=== PATIENT | female | born 2005 | race Caucasian/White ===

== ENCOUNTER 2024-06-12 10:49 | Inpatient (IN) | payer OTHER ==
[~2024-06-12] VITALS: Ht 161.3 cm; Wt 101.6 kg
[~2024-06-12 10:49] MED LIST: SEVOFLURANE 250 ML BTL INH ONE
[2024-06-12] MEDS ORDERED: MAGNESIUM HYDROXIDE/AL HYDROX 30 ML CUP PO PRN (11:30)
[2024-06-12] MEDS ORDERED: PENICILLIN G POTASSIUM 5 MUNITS/110 ML PIGGYBACK IV ONE (11:30)
[2024-06-12] MEDS ORDERED: CALCIUM CARBONATE 500 MG CHEW PO PRN (11:30)
[2024-06-12] MEDS ORDERED: miSOPROStoL 25 MCG TAB PV SCH (11:30)
[2024-06-12 11:54] LABS: HEMOGLOBIN 10.7 g/dL (12.0-18.0); MCH 25.3 (27-36); MCHC 32.6 g/dl (30-36); MCV 77.6 fl (81-99); RBC 4.25 M/ul (4.3-5.7)
[2024-06-12 12:18] LABS: ALBUMIN 2.4 g/dL (3.4-5.0); ALBUMIN/GLOBULIN RATIO 0.57 (1.1-2.4); ANION GAP 13.9 (7-21); BILIRUBIN, TOTAL 0.4 ng/dL (0.2-1.0); BUN/CREATININE RATIO 15.55 (6.0-28.6); CREATININE, SERUM 0.45 mg/dL (0.55-1.02); POTASSIUM 3.9 mmol/L (3.5-5.1); PROTEIN, TOTAL 6.6 g/dL (6.4-8.2)
[2024-06-12 13:22] LABS: ABO A; RH NEGATIVE
[2024-06-12 13:23] LABS: ANTIBODY IDENTIFICATION ANTI-D; ANTIBODY SCREEN POSITIVE
[2024-06-12 13:57] LABS: CREATININE, RANDOM URINE 104.46 mg/dL (NOT ESTABLISHED); PROTEIN/CREATININE RATIO 0.11 mg/mg (0.010-0.107)
[2024-06-12 14:08] LABS: AMPHETAMINES, URINE NEGATIVE (NEGATIVE); BARBITURATES, URINE NEGATIVE (NEGATIVE); BENZODIAZEPINE, URINE NEGATIVE (NEGATIVE); BUPRENORPHINE, URINE NEGATIVE (NEGATIVE); CANNABINOID, URINE NEGATIVE (NEGATIVE); COCAINE, URINE NEGATIVE (NEGATIVE); ECSTASY, URINE NEGATIVE (NEGATIVE); FENTANYL, URINE NEGATIVE (NEGATIVE); METHADONE, URINE NEGATIVE (NEGATIVE); OPIATES, URINE NEGATIVE (NEGATIVE); OXYCODONE, URINE NEGATIVE (NEGATIVE); PHENCYCLIDINE, URINE NEGATIVE (NEGATIVE)
[2024-06-12 14:38] VITALS: BP 128/75
[2024-06-12] MEDS ORDERED: ACETAMINOPHEN 500 MG TAB PO PRN (15:45)
[2024-06-12] MEDS ORDERED: ondansetron HCL 4 MG/2 ML VIAL IV PRN (15:45)
[2024-06-13] MEDS ORDERED: PENICILLIN G POTASSIUM 5 MUNITS/110 ML PIGGYBACK IV ONE ×2 (00:01→08:15)
[2024-06-13] MEDS ORDERED: PENICILLIN G POTASSIUM 2.5 MUNITS in DEXTROSE 5% 100 ML IV SCH ×2 (04:00→12:00)
[2024-06-13] MEDS ORDERED: ROPIVACAINE 0.2% 200 ML BAG ONE (08:09)
[2024-06-13] MEDS ORDERED: LACTATED RINGER'S 1,000 ML IV SCH (08:15)
[2024-06-13] MEDS ORDERED: LACTATED RINGER'S 2,000 ML IV ONE (08:30)
[2024-06-13] MEDS ORDERED: ePHEDrine sulfate 5 MG/ML SYRINGE IV PRN (08:30)
[2024-06-13] MEDS ORDERED: ROPIVACAINE 0.2% 200 ML BAG EPIDURAL SCH (08:30)
[2024-06-13] MEDS ORDERED: LACTATED RINGER'S 500 ML IV PRN (08:30)
--- NOTE | 2024-06-13 09:12 | PR ---
[facility] [address] [place], [place] [address] Signed Progress Notes IP Datetime Report Generated by CPN: 06/13/2024 09:12 PROGRESS NOTES: [id number] Impression: Normal Progression of Labor; Reassuring Heart Rate Plan: Continue Present Management Informed Consent Obtain: Vaginal Delivery VITAL SIGNS: [id number] Vital Signs: Reviewed; Within Normal Limits EXAM: [id number] Effacement: 70 Station: -3 Contractions: q 2-3 min MEMBRANES: [id number] Comments: Pt seen and evaluated. Cx exam per RN. PEREZ at 06:30 this morning after receiving 2nd dose of cytotec. Clear fluid. Cat 1 tracing. Pt requested epidural which was kindly placed by anesthesia. BPs normal. No concerns. Continue expectant management and anticipate FETUS A: [id number] FHR Baseline: 130 Variability: Moderate 6-25bpm Accelerations: 15X15 Decelerations: None FHR Category: Category I Presentation: Vertex Comments on Fetus A: No evidence of metabolic acidosis FETUS B: [id number] Signing Physician: Daryl Myles DO Copies: ~ *Electronically Signed* 06/13/24911 DARYL MYELS (YASIR) DO PATIENT NAME: FER MCKAY PROGRESS NOTE DATE OF : 04 PHYSICIAN: DARYL MYLES) DO RPT #: [id number] REPORT IS CONFIDENTIAL AND NOT TO BE RELEASED WITHOUT AUTHORIZATION
[2024-06-13] MEDS ORDERED: OXYTOCIN/0.9 % SODIUM CHLORIDE 500 ML IV SCH ×3 (12:00→23:30)
--- NOTE | 2024-06-13 15:25 | PR ---
[facility] [address] [facility] [place], [place] [address] Signed Progress Notes IP Datetime Report Generated by CPN: 06/13/2024 15:25 PROGRESS NOTES: [id number] Impression: Normal Progression of Labor; Reassuring Heart Rate Procedures: Sterile Vag Exam Plan: Continue Present Management; Augmentation Informed Consent Obtain: Vaginal Delivery VITAL SIGNS: [id number] Vital Signs: Reviewed; Within Normal Limits EXAM: [id number] Dilatation: 4.5 Effacement: 90 Station: -2 Contractions: q 2-4 min MEMBRANES: [id number] Comments: Pt seen and examined. Doing well. Comfortable w/ epidural. On low dose pitocin. OT positon. Continue augmentation. Anticipate . FETUS A: [id number] FHR Baseline: 130 Variability: Moderate 6-25bpm Accelerations: 15X15 Decelerations: None FHR Category: Category I Presentation: Vertex Comments on Fetus A: No evidence of metabolic acidosis FETUS B: [id number] Signing Physician: Daryl Myles DO Copies: ~ *Electronically Signed* 06/13/24 1525 DARYL MYLES (YASIR) DO PATIENT NAME: FER MCKAY PROGRESS NOTE DATE OF : 04 PHYSICIAN: DARYL MYLES (YASIR) DO RPT #: [id number] REPORT IS CONFIDENTIAL AND NOT TO BE RELEASED WITHOUT AUTHORIZATION
--- NOTE | 2024-06-13 20:43 | PR ---
[facility] [address] [place], [place] [address] Signed Progress Notes IP Datetime Report Generated by CPN: 06/13/2024 20:43 PROGRESS NOTES: [id number] Impression: Normal Progression of Labor; Reassuring Heart Rate Procedures: Sterile Vag Exam Plan: Continue Present Management; Anticipate Vaginal Delivery Informed Consent Obtain: Vaginal Delivery VITAL SIGNS: [id number] Vital Signs: Reviewed; Within Normal Limits EXAM: [id number] Dilatation: 10.0 Effacement: 100 Station: 0 Contractions: q 3-4 min MEMBRANES: [id number] Comments: Pt seen and examined. Doing well. Some breakthrough pain w/ epidural on LEFT side. Pt now complete and will start pushing. FHT reassuring and will monitor closely. Reviewed anticipated course of 2nd stage of labor. All questions answered. FETUS A: [id number] FHR Baseline: 130 Variability: Moderate 6-25bpm Accelerations: 15X15 Decelerations: Late FHR Category: Category II Presentation: Vertex Comments on Fetus A: No evidence of metabolic acidosis FETUS B: [id number] Signing Physician: Daryl Myles DO Copies: ~ *Electronically Signed* 06/13/242042 DARYL MYLES (YASIR) DO PATIENT NAME: FER MCKAY PROGRESS NOTE DATE OF : 04 PHYSICIAN: DARYL MYLES (JD) DO RPT #: [id number] REPORT IS CONFIDENTIAL AND NOT TO BE RELEASED WITHOUT AUTHORIZATION
[2024-06-13] MEDS ORDERED: AMPICILLIN SOD 1 GM VIAL ONE (21:49)
[2024-06-13] MEDS ORDERED: ROCURONIUM BROMIDE 50 MG/5 ML SYR ONE (21:53)
[2024-06-13] MEDS ORDERED: SUCCINYLCHOLINE IN 0.9% NACL 200 MG/10 ML SYRINGE ONE (21:53)
[2024-06-13] MEDS ORDERED: fentaNYL citrate 100 MCG/2 ML VIAL ONE ×3 (21:53→23:26)
--- NOTE | 2024-06-13 21:54 | PR ---
[facility] [address] [place], [place] [address] Signed Progress Notes IP Datetime Report Generated by BLAYNE: 06/13/2024 21:54 PROGRESS NOTES: [id number] Impression: Arrest of Dilatation/Descent; Non-reassuring Heart Rate; Intrauterine Inflammation Procedures: Sterile Vag Exam Plan: Deliver- Section Informed Consent Obtain: Section Delivery; Risks, Benefits and Alternatives Discussed VITAL SIGNS: [id number] Vital Signs: Reviewed; Within Normal Limits EXAM: [id number] Dilatation: 10.0 Effacement: 100 Station: 0 Contractions: q 2-3 min MEMBRANES: [id number] Comments: Pt pushing w/ contractions w/ RN. Notified of maternal fever and tachycardia. Reviewed strip and noted tachycardia w/ minimal variability and recurrent late decelerations. Presented to bedside and pt remote from delivery. Not candidate for operative vaginal delivery due to high station. Recommended proceeding with stat section. Reviewed risks/benefits/alternatives. Pt and family members understand and agree. Stop pit, terbutaline, and Amp/Gent/Clinda ordered. OR crew notified and en route. Consents and orders completed. To OR to prepare for delivery FETUS A: [id number] FHR Baseline: 130 Variability: Minimal - >Undetectable to <=5bpm Accelerations: 15X15 Decelerations: Late FHR Category: Category II Presentation: Vertex Comments on Fetus A: No evidence of metabolic acidosis FETUS B: [id number] Signing Physician: Daryl Myles DO *Electronically Signed* 06/13/24 0807 DARYL MYLES) DO PATIENT NAME: FER MCKAY Candice PROGRESS NOTE DATE OF : 04 PHYSICIAN: DARYL MYLES) DO RPT #: [id number] REPORT IS CONFIDENTIAL AND NOT TO BE RELEASED WITHOUT AUTHORIZATION
[2024-06-13] MEDS ORDERED: SOD+POT BICARB/CITRIC ACID 2 EA TABLET.EFF PO ONE (22:00)
[2024-06-13] MEDS ORDERED: AMPICILLIN SOD 2 GM in SODIUM CHLORIDE 0.9% 100 ML IV SCH (22:00)
[2024-06-13] MEDS ORDERED: CLINDAMYCIN PHOSPHATE/D5W 900 MG/50 ML PIGGYBACK IV SCH (22:00)
[2024-06-13] MEDS ORDERED: DEXTROSE 5% IV ONE ×2 (22:00→22:15)
[2024-06-13] MEDS ORDERED: GENTAMICIN SULFATE IV ONE ×2 (22:00→22:15)
[2024-06-13] MEDS ORDERED: GENTAMICIN SULFATE 80 MG/2 ML VIAL ONE (22:01)
[2024-06-13] MEDS ORDERED: DEXAMETHASONE SOD PHOS 4 MG/ML VIAL ONE ×2 (22:08→22:46)
[2024-06-13] MEDS ORDERED: ondansetron HCL 4 MG/2 ML VIAL ONE (22:08)
[2024-06-13] MEDS ORDERED: OXYTOCIN 10 UNITS/ML VIAL ONE (22:08)
[2024-06-13] MEDS ORDERED: MIDAZOLAM HCL 2 MG/2 ML VIAL ONE (22:24)
[2024-06-13] MEDS ORDERED: SODIUM CHLORIDE 0.9% 40 ML IV ONE (22:24)
[2024-06-13] MEDS ORDERED: MORPHINE SULFATE 1 MG/ML VIAL ONE (22:31)
[2024-06-13] MEDS ORDERED: NALOXONE HCL 0.4 MG SYR IV PRN ×2 (22:45→23:00)
[2024-06-13] MEDS ORDERED: KETOROLAC TROMETHAMINE 30 MG/ML VIAL IV PRN ×2 (22:45→23:00)
[2024-06-13] MEDS ORDERED: ondansetron HCL 4 MG/2 ML VIAL IV PRN ×3 (22:45→23:30)
[2024-06-13] MEDS ORDERED: diphenhydrAMINE HCL 25 MG CAP PO PRN (22:45)
[2024-06-13] MEDS ORDERED: diphenhydrAMINE HCL 50 MG/ML VIAL IV PRN ×2 (22:45→23:00)
[2024-06-13] MEDS ORDERED: HYDROmorphone HCL 1 MG/ML SYR IV PRN ×2 (22:45→23:00)
[2024-06-13] MEDS ORDERED: Ropivacaine HCl 0.5% 30 ML VIAL ONE (22:46)
[2024-06-13] MEDS ORDERED: dexmedeTOMIDine HCl 200 MCG/2 ML VIAL ONE (22:46)
[2024-06-13] MEDS ORDERED: IBLOOD GLUCOSE TEST STRIP 1 EA TEST VI PRN (23:00)
[2024-06-13] MEDS ORDERED: fentaNYL citrate 50 MCG/ML SDV IV PRN (23:00)
[2024-06-13] MEDS ORDERED: SUGAMMADEX SODIUM 200 MG/2 ML ML ONE (23:23)
[2024-06-13] MEDS ORDERED: PROCHLORPERAZINE EDISYLATE 10 MG/2 ML VIAL IV PRN (23:30)
[2024-06-13] MEDS ORDERED: METOCLOPRAMIDE HCL 10 MG/2 ML SDV IV PRN (23:30)
[2024-06-13] MEDS ORDERED: OXYCODONE/APAP 5/325 TAB PO PRN (23:30)
[2024-06-13] MEDS ORDERED: PROMETHAZINE HCL 25 MG TAB PO PRN (23:30)
[2024-06-13] MEDS ORDERED: HYDROCODONE/ACETA 5/325 TAB PO PRN (23:30)
[2024-06-13] MEDS ORDERED: PROMETHAZINE HCL 25 MG SUPP PR PRN (23:30)
[2024-06-13] MEDS ORDERED: OXYCODONE HCL 5 MG TAB PO PRN (23:30)
[2024-06-13] MEDS ORDERED: bisacodyL 10 MG SUPP PR PRN (23:30)
--- NOTE | 2024-06-13 23:37 | NUR ---
RT AT FROM 2151 UNTIL 2229 FOR DONTAE MCKAY
[2024-06-14] VITALS: BP 128/76
--- NOTE | 2024-06-14 00:04 | NUR ---
06/14/24 Amy Elaine Ester 2315- PT TAKEN TO [facility] ROOM 106, PT REACTIVE TO STIMULUS AND MAKING MOANING SOUNDS BUT DOESN'T ANSWER QUESTIONS. PT SUPINE AND ON ROOM AIR. ABD SOFT, NON DISTENDED. RAMOS CATHETER IN PLACE DRAINING DARK YELLOW URINE. PT HAS 20 G IV TO RH, LR WITH 30 UNITS OF PITOCIN INFUSING. ALL MONITORS IN PLACE. DRESSING, CDI. 2320- PT MORE AWAKE AND ASKING FOR HER FAMILY IN THE ROOM. PT KEEPS REPEATING "IT HURTS", "IT FEELS LIKE A CONTRACTION". PT REPORTS PAIN 5/10 WHILE LAYING, BUT 10/10 WITH FUNDAL CHECKS. WILL MEDICATE PER ORDERS. 2330- PT MEDICATED WITH 50 MCG FENTANYL AND 30 MG TORADOL. FUNDAL CHECK PERFORMED. 2335- PT REPORTS PAIN FEELS THE SAME WHILE LAYING STILL BUT TOLERABLE. FUNDAL CHECKS ARE STILL PAINFUL, ALTHOUGH PT WAS MORE COMFORTABLE AFTER FUNDAL CHECK QUICKER. 2340- PT TEARFUL AND ASKING FOR SISTER, REASSURED BY FAMILY AT BEDSIDE. NO OTHER SIGNS OF DISTRESS. 2345- BEDSIDE REPORT TO MYRIAM GUNTER, CARE OF PT TURNED OVER AT THIS TIME.
[2024-06-14] MEDS ORDERED: IBUPROFEN 600 MG TAB PO SCH (02:00)
[2024-06-14] MEDS ORDERED: KETOROLAC TROMETHAMINE 30 MG/ML VIAL IV SCH ×2 (02:00→05:30)
[2024-06-14] MEDS ORDERED: AMPICILLIN SOD 2 GM in SODIUM CHLORIDE 0.9% 100 ML IV SCH (04:00)
[2024-06-14] MEDS ORDERED: AMPICILLIN SOD 2 GM ONE (04:14)
[2024-06-14] MEDS ORDERED: TERBUTALINE SULFATE 1 MG/ML AMP SUB-Q ONE (05:30)
[2024-06-14 05:35] LABS: HEMOGLOBIN 9.2 g/dL (12.0-18.0)
[2024-06-14 05:37] LABS: HEMATOCRIT 29.1 % (35.0-50.0); MCH 24.9 (27-36); MCHC 31.7 g/dl (30-36); MCV 78.4 fl (81-99); PLATELET COUNT 336 K/uL (140-440); RBC 3.72 M/ul (4.3-5.7); RDW 17.6 (10.5-15.0)
[2024-06-14] MEDS ORDERED: CLINDAMYCIN PHOSPHATE/D5W 900 MG/50 ML PIGGYBACK IV SCH (06:00)
[2024-06-14 06:01] LABS: LYMPHOCYTES, MANUAL DIFF 4; MONOCYTES, MANUAL DIFF 4; NEUTROPHILS, MANUAL DIFF 92
[2024-06-14 07:22] LABS: ABO A; ANTIBODY SCREEN POSITIVE; FETAL HEMOGLOBIN SCREEN NEGATIVE; RH NEGATIVE
[2024-06-14 07:24] LABS: RHIG STATUS NOT CANDIDATE
[2024-06-14 07:40] LABS: ANTIBODY IDENTIFICATION ANTI-D
[2024-06-14] MEDS ORDERED: ACETAMINOPHEN 325 MG TAB PO PRN (08:30)
[2024-06-14] MEDS ORDERED: LACTATED RINGER'S 1,000 ML IV SCH (08:30)
--- NOTE | 2024-06-14 08:51 | PR ---
[facility] [address] [facility] [place], [place] [address] Signed PP Progress Notes Datetime Report Generated by CPN: 06/14/2024 08:50 SUBJECTIVE: [id number] Pain: Within Normal Limits Nausea/Vomiting: Denies Flatus: Yes Vital Signs: [id number] Vital Signs: Reviewed; Within Normal Limits Cardiovascular: Normal Respiratory: Normal Abdomen/Uterus: Normal Lochia: Normal Extremities: Normal Progress: Normal Exam Comments: Fundus firm U-2. Incision bandaged IMPRESSION/PLAN/PROCEDURES: [id number] Impression: Normal Progression Progress Notes: Pt seen and examined. Doing well. Reno still in place and has not ambulated yet. Pain and lochia minimal. . No concerns. Continue routine pp care. Signing Physician: Daryl Myles DO Copies: ~ *Electronically Signed* 06/14/24 0850 DARYL MYLES) DO PATIENT NAME: FER MCKAY PROGRESS NOTE DATE OF : 04 PHYSICIAN: DARYL MYLES DO (JD) RPT #: [id number] REPORT IS CONFIDENTIAL AND NOT TO BE RELEASED WITHOUT AUTHORIZATION
[2024-06-14] MEDS ORDERED: ENOXAPARIN SODIUM 40 MG/0.4 ML SYR SUB-Q SCH (09:00)
[2024-06-14] MEDS ORDERED: SENNOSIDES/DOCUSATE 1 EA TAB PO SCH (09:00)
[2024-06-14] MEDS ORDERED: SIMETHICONE 80 MG CHEW PO SCH (11:00)
[2024-06-14] MEDS ORDERED: GENTAMICIN SULFATE 480 MG in DEXTROSE 5% 250 ML IV SCH (21:00)
[2024-06-14] MEDS ORDERED: DEXTROSE 5% IV ONE (22:00)
[2024-06-14] MEDS ORDERED: GENTAMICIN SULFATE IV ONE (22:00)
--- NOTE | 2024-06-15 01:50 | OR ---
[address] [place], [place] [address] Signed DATE OF OPERATION: 06/13/2024 SURGEON: Daryl Myles DO PREOPERATIVE DIAGNOSES: 1. Intrauterine at 39 weeks gestation. 2. Gestational hypertension. 3. Nonreassuring heart tracing. 4. Chorioamnionitis. 5. Persistent occipito-posterior position. 6. Rh negative. POSTOPERATIVE DIAGNOSES: 1. Intrauterine at 39 weeks gestation. 2. Gestational hypertension. 3. Nonreassuring heart tracing. 4. Chorioamnionitis. 5. Persistent occipito-posterior position. 6. Rh negative. PROCEDURE PERFORMED: Primary low transverse section. PRINT PROJECT MANAGER: None. ANESTHESIA: Labor epidural followed by general anesthetic with postoperative TAP block. QUANTITATIVE BLOOD LOSS: 600 mL. DRAINS: Reno to gravity. COMPLICATIONS: None. FINDINGS: Delivery of viable male , 6 pounds 12 ounces with Apgars of 9 and 9 born in [facility] Electronically Signed By: DARYL MYLES DO (JD) 06/15/24 0150 PATIENT NAME: FER SHAH OPERATIVE REPORT DATE OF : 04 REPORT #: [id number] PHYSICIAN: DARYL MYLES) PCP: DARYL MYLES) REPORT IS CONFIDENTIAL AND NOT TO BE RELEASED WITHOUT AUTHORIZATION [address] [address] Signed position via low transverse uterine incision. Clear amniotic fluid. No nuchal cord. Normal blood gases. Normal uterus, tubes, and ovaries. Persistent occiput posterior positioning with caput. INDICATIONS: Ms. Shah is a very pleasant 19-year-old, G1, P0, with intrauterine at 39-week gestation. She was diagnosed with gestational hypertension and admitted for induction of labor. She received two doses of Cytotec and spontaneously ruptured. Labor progressed well after the addition of Pitocin and the patient progressed to complete. The patient pushed contractions, but no descensus was noted. She developed a maternal fever and tachycardia. heart tracing then demonstrated minimal variability and recurrent late decelerations. She was remote from delivery and stated station was too high to attempt operative vaginal delivery. The patient was consented for primary . Risks, benefits, and alternatives were discussed in detail with the patient. The patient understands and wishes to proceed with the procedure. DESCRIPTION OF PROCEDURE: The patient was taken to the OR where a time-out was performed to confirm correct patient and procedure. Unfortunately, epidural was no longer providing adequate anesthesia and decision was made to proceed with under general anesthetic. The patient was prepped and draped in the supine position with a bump on the right hip. Reno catheter was inserted. The patient received ampicillin 2 g, clindamycin 900 mg, and gentamicin 5 mg/kg per SCIP protocol. No preoperative heparin was indicated. Once the patient was prepped and draped, general anesthetic was established and a Pfannenstiel incision was made approximately 2 cm above the pubic symphysis. Incision was carried down to the fascia and the fascia was nicked in the midline. Fascial incision was extended bilaterally using a surgical scalpel. The rectus was divided bluntly and the peritoneum was entered bluntly. The lower uterine segment identified and Can self retractor was placed. Hysterotomy was then performed using surgical scalpel notable for clear amniotic fluid. Hysterotomy was extended bilaterally using blunt dissection. The surgeon's hand was placed in the uterine cavity. The head elevated in the LOP position without difficulty. No nuchal cord was noted. Head was elevated in the abdomen delivered with the assistance of fundal pressure. The remainder of the delivered without issue and the baby was vigorous and cried upon delivery. Cord was doubly clamped and cut and the handed to the waiting pediatric team for further care. Cord blood was obtained for routine analysis and cord gases were sent. The placenta was expressed, intact with a centrally inserted three-vessel cord and the placenta was sent to Pathology for chorioamnionitis. The uterine cavity was cleared of any remaining products of conception or clot. Preoperatively, the patient did receive a dose of terbutaline given the heart tracing. Pitocin was administered per protocol. The uterine cavity was cleared of any Electronically Signed By: DARYL MYLES DO (JD) 06/15/24 0150 PATIENT NAME: FER SHAH OPERATIVE REPORT DATE OF : 04 REPORT #: [id number] PHYSICIAN: DARYL MYLES) PCP: DARYL MYLES DO (JD) REPORT IS CONFIDENTIAL AND NOT TO BE RELEASED WITHOUT AUTHORIZATION [address] [address] Signed remaining products of conception or clot. Hysterotomy was repaired in two layers of 0 Monocryl. The first layer was a running locked layer and the 2nd layer was running imbricating layer in a vertical manner. Uterine tone was noted to be good and bleeding was minimal at this point. The pelvis was irrigated and made hemostatic with judicious use of Bovie electrocautery. Any clots in the pelvis or paracolic gutters were removed. Opal was applied in the lower uterine segment. The Can self retractor was removed and peritoneum was reapproximated using 2-0 Vicryl in a running nonlocked manner. Rectus was done loosely plicated in the midline with three interrupted sutures of 0 Vicryl after ensuring hemostasis with Bovie electrocautery and irrigation. Remainder of Opal was applied to the rectus sheath. Excellent hemostasis was again appreciated. The fascia was then reapproximated using 0 Vicryl in a running nonlocked manner. Subcu was irrigated, made hemostatic with Bovie electrocautery. Subcu was reapproximated using 3-0 Vicryl in a running nonlocked manner. Skin was reapproximated using surgical gabrielle. The uterus was Crede'd for scant amount of blood and the patient remained in the OR for postoperative TAP block. Sponge and instrument counts correct x2 at the end of procedure. DO BRUNO Weaver/MODL /[id number] Copies: ~ Electronically Signed By: DARYL MYLES DO (JD) 06/15/24 0150 PATIENT NAME: WOODYFER A OPERATIVE REPORT DATE OF : 04 REPORT #: [id number] PHYSICIAN: DARYL MYLES (YASIR) DO PCP: DARYL MYLES (YASIR) DO REPORT IS CONFIDENTIAL AND NOT TO BE RELEASED WITHOUT AUTHORIZATION
[2024-06-15] MEDS ORDERED: IBUPROFEN 600 MG TAB PO SCH ×2 (02:00)
--- NOTE | 2024-06-15 15:34 | PR ---
[facility] [address] [place], [place] [address] Signed PP Progress Notes Datetime Report Generated by CPN: 06/15/2024 15:34 SUBJECTIVE: [id number] Pain: Within Normal Limits Nausea/Vomiting: Denies Flatus: Yes Bowel Movement: No Vital Signs: [id number] Vital Signs: Reviewed EXAM: Ongoing Cardiovascular: Normal Respiratory: Normal Abdomen/Uterus: Normal Lochia: Normal Vulva/Perineum: Not Done Breasts: Not Done CVA Tenderness: Normal Extremities: Normal Incision: Normal Progress: Normal Exam Comments: Fundus firm U-2 nontender IMPRESSION/PLAN/PROCEDURES: [id number] Impression: Normal Progression Progress Notes: Pt seen and examined. Doing well. Ambulating, voiding, and tolerating full diet. Pain and lochia minimal. well. No fever/chill. Elevated WBCs this am but decreased. Will recheck in AM and anticiapte DC home tomorrow. BPs normal. Signing Physician: Daryl Myles DO Copies: ~ *Electronically Signed* 06/15/24 1534 DARYL MYLES (YASIR) DO PATIENT NAME: FER MCKAY PROGRESS NOTE DATE OF : 04 PHYSICIAN: DARYL MYLES) DO RPT #: [id number] REPORT IS CONFIDENTIAL AND NOT TO BE RELEASED WITHOUT AUTHORIZATION
[2024-06-16 05:40] LABS: HEMOGLOBIN 8.3 g/dL (12.0-18.0); MCH 25.4 (27-36); MCV 79.4 fl (81-99); PLATELET COUNT 348 K/uL (140-440); RBC 3.28 M/ul (4.3-5.7); RDW 17.3 (10.5-15.0)
[2024-06-16 06:10] LABS: BANDS, MANUAL DIFF 1; BASOPHILS, MANUAL DIFF 1; EOSINOPHILS, MANUAL DIFF 3; LYMPHOCYTES, MANUAL DIFF 27; MONOCYTES, MANUAL DIFF 5; NEUTROPHILS, MANUAL DIFF 63
--- NOTE | 2024-06-16 09:43 | PR ---
[facility] [address] [place], [place] [address] Signed PP Progress Notes Datetime Report Generated by CPN: 06/16/2024 09:43 SUBJECTIVE: [id number] Pain: Within Normal Limits Nausea/Vomiting: Denies Flatus: Yes Bowel Movement: Yes Vital Signs: [id number] Vital Signs: Reviewed; Within Normal Limits EXAM: Ongoing Cardiovascular: Normal Respiratory: Normal Abdomen/Uterus: Normal Lochia: Normal Vulva/Perineum: Not Done Breasts: Not Done CVA Tenderness: Normal Extremities: Normal Incision: Normal Progress: Normal Exam Comments: Fundus firm U-2 nontender. Incision well healing IMPRESSION/PLAN/PROCEDURES: [id number] Impression: Normal Progression Plan: Remove [place]; Discharge Progress Notes: Pt seen and examined. Doing well. Ambulating, voiding, and tolerating full diet. Pain and lochia minimal. . No fevers/chills. Incision well healing. BPs well controlled. WBCs improved. No concerns. Desires d/c home. Plan BP check in 2-3 days. Undecided on pp contraception. Reviewed d/c meds and instructions Signing Physician: Daryl Myles DO Copies: ~ *Electronically Signed* 06/16/24 0915 DARYL MYLES (YASIR) DO PATIENT NAME: FER MCKAY PROGRESS NOTE DATE OF : 04 PHYSICIAN: DARYL MYLES (JD) DO RPT #: [id number] REPORT IS CONFIDENTIAL AND NOT TO BE RELEASED WITHOUT AUTHORIZATION
--- NOTE | 2024-06-18 08:55 | PATH ---
[facility] [address] [place], [place] [address] Signed SPECIMEN(S): A PLACENTA SPECIMEN SOURCE: A. PLACENTA CLINICAL HISTORY: Gestational Age: 39 1/7 weeks, Infants weight: 6 pounds 12 ounces, Score 1 Minute: Nine, Score 5 Minute: Nine, Score 10 Minute: Not provided, ABO/Rh(D): Not provided, Rhogam: Not provided, Antibody Screen: Negative, Specific issues of concern: Chorioamnionitis, intolerance of . FINAL PATHOLOGIC DIAGNOSIS: Placenta, delivery: - Mature alcala placenta with three-vessel umbilical cord (434 grams) - Mild acute chorionitis enthesis grade 1/2; stage 1/3) without inflammatory response - Decidual arteriopathy, mild BRP MICROSCOPIC EXAMINATION: Histologic sections of all submitted blocks are examined by light microscopy. These findings, together with the gross examination, support the pathologic diagnosis. GROSS DESCRIPTION: The specimen, labeled and designated "Ehnancy, S, " and designated on the requisition "placenta," is received fresh and placed in formalin and consists of alcala discoid placenta with the following parameters: Umbilical cord: Insertion eccentric, measurement 7.3 x 1.4 cm; trivascular. Cord coiling index (per 10 cm): Cannot be grossly assessed. Lesions: Not grossly identified. Membranes: Insertion site: Marginal, pink-hinojosa and translucent. Intact. Other: Not grossly identified. Chorionic Plate: Normal radiating vascular pattern, blue-purple and shiny. Lesions: Not grossly identified. Other: Not grossly identified. Maternal Surface: Normal cotyledons, intact. Lesions: Not grossly identified. Measurement: 18.3 x 15.5 x 2.6 cm. 434 g Cut Surface: Maroon and spongy. Lesions: Not grossly identified. Basal plate fibrin 0.1 cm in thickness. PATIENT NAME: FER MCKAY PATHOLOGY DATE OF : 04 REPORT #: [id number] PHYSICIAN: ERAN PATHOLOGY PCP: DARYL NICHOLSON (YASIR) DO REPORT IS CONFIDENTIAL AND NOT TO BE RELEASED WITHOUT AUTHORIZATION [facility] [address] [place], [place] [address] Signed Other Findings: Not grossly identified. Cassette Summary: (A1) membranes and umbilical cord (A2) placenta parenchyma (A3) placenta parenchyma (A4) placenta parenchyma FB (under the direct supervision of a pathologist) The Gross Description was prepared using a voice recognition system. The report was reviewed for accuracy; however, sound-alike word errors, addition and/or deletions may occur. If there is any question about this report, please contact Client Services. ADDITIONAL NOTES: Immunohistochemical and/or in situ hybridization studies if performed in this case included appropriate positive controls that reacted as expected. This test was developed and its performance characteristics determined by [facility]. It has not been cleared or approved by the U.S. Food and Drug Administration. The FDA has determined that such clearance or approval is not necessary. This test is used for clinical purposes. It should not be regarded as investigational or for research. [facility] is certified under the Clinical Laboratory Improvement Amendments of 1988 (CLIA) as qualified to perform high complexity clinical laboratory testing. PERFORMING LABORATORY: Technical component was performed by [facility], [address] [place] [id number] (CLIA# [id number]). Professional interpretation was performed by [facility], [address] [place] [id number] (CLIA#: [id number]). Diagnostician: Ashwin Chavarria MD Pathologist Electronically Signed 06/18/2024 Copies: ~ PATIENT NAME: FER MCKAY [facility] PATHOLOGY DATE OF : 04 REPORT #: [id number] PHYSICIAN: ERAN LOW PCP: DARYL NICHOLSON (YASIR) DO REPORT IS CONFIDENTIAL AND NOT TO BE RELEASED WITHOUT AUTHORIZATION
== END 2024-06-16 11:00 | disposition home or self-care (01) | DRG 786 ==
LOC: FBC 10:49
PROVIDERS: Obstetrics & Gynecology; ADMIT Obstetrics & Gynecology; ATTEND Obstetrics & Gynecology
PROC: 10D00Z1 Extraction of Products of Conception, Low, Open Approach (ICD-10-PCS; principal; 2024-06-13 22:00)
DX: O14.94 Unspecified pre-eclampsia, complicating childbirth (principal); O41.1230 Chorioamnionitis, third trimester, not applicable or unspecified; Z3A.39 39 weeks gestation of pregnancy; Z37.0 Single live birth; O64.0XX0 Obstructed labor due to incomplete rotation of fetal head, not applicable or unspecified; O62.1 Secondary uterine inertia; O99.824 Streptococcus B carrier state complicating childbirth; O99.214 Obesity complicating childbirth; O99.02 Anemia complicating childbirth; Z88.8 Allergy status to other drugs, medicaments and biological substances; Z90.81 Acquired absence of spleen; Z90.49 Acquired absence of other specified parts of digestive tract; Z79.82 Long term (current) use of aspirin; Z79.899 Other long term (current) drug therapy
CPT/HCPCS: 01961; 36415; 64488; 76937; 76942; 80053; 80307; 82565; 82570; 82803; 83030; 83615; 84156; 84550; 85007; 85025; 85027; 86850; 86870; 86900; 86901; 88307; A9270; J0290; J0330; J1100; J1580; J1650; J1885; J2250; J2274; J2405; J2540; J2590; J2790; J2795; J3010; J3105; J3490; J7060; J7121